=== PATIENT | male | born 1980 | race Caucasian/White ===

== ENCOUNTER 2021-10-21 11:18 | Outpatient (CLI) | payer OTHER ==
--- NOTE | 2021-10-21 13:47 | XRay Report ---
CHEST 2 VIEWS INDICATION / CLINICAL INFORMATION: TB CLEARANCE. COMPARISON: None available. FINDINGS: SUPPORT DEVICES: None. HEART / MEDIASTINUM: No significant abnormality. LUNGS / PLEURA: No significant pulmonary or pleural abnormality. No pneumothorax. ADDITIONAL FINDINGS: No significant additional findings. IMPRESSION: 1. No acute findings. Signer Name: Avtar Donohue MD Signed: 10/21/2021 1:43 PM Workstation Name: [facility] [id number]
== END 2021-10-21 11:19 | disposition home or self-care (01) ==
LOC: XRAY 11:18
PROVIDERS: ATTEND Psychiatry & Neurology Psychiatry
DX: R79.9 Abnormal finding of blood chemistry, unspecified (principal); E78.5 Hyperlipidemia, unspecified; Z79.899 Other long term (current) drug therapy
CPT/HCPCS: 71046